=== PATIENT | male | born 1970 | race Hispanic/Latino ===

== ENCOUNTER 2018-10-20 18:02 | Inpatient (IN) | payer SELFPAY ==
[2018-10-20] MEDS ORDERED: ZOFRAN IV ONE ×2 (18:23→18:26)
[2018-10-20] MEDS ORDERED: NACL 0.9% 1000 ML 1,000 ML IV ONE (18:23)
[2018-10-20] MEDS ORDERED: MORPHINE IV ONE (18:26)
[2018-10-20] MEDS ORDERED: MORPHINE ONE (18:28)
--- NOTE | 2018-10-20 18:30 | Emergency Department Report ---
ED Abdominal Pain HPI - General Chief Complaint: GI Bleed Stated Complaint: ABD PAIN Time Seen by Provider: 10/20/18 18:18 Source: patient Mode of arrival: Wheelchair Limitations: No Limitations - History of Present Illness Initial Comments: 48-year-old male with no past medical history presents to ED with epigastric abdominal pain since this morning. Patient states pain has been getting progressively worse. Reported coffee-ground emesis, also reports nonbloody diarrhea. Denies migration or radiation of abdominal pain. Denies aggravating or alleviating factors. Patient states pain feels like a "tearing" sensation. The patient denies tobacco, alcohol, drug use. MD Complaint: abdominal pain -: This morning Location: epigastric Radiation: none Migration to: no migration Severity: severe Severity scale (0 -10): 10 Quality: other ("tearing") Consistency: constant Improves With: nothing Worsens With: nothing Associated Symptoms: nausea, vomiting, diarrhea, other (reports coffee ground emesis). denies: fever, hematochezia, melena - Related Data Allergies Allergy/AdvReac Type Severity Reaction Status Date / Time acetaminophen [From Vicodin] Allergy Swelling Verified 10/20/18 18:41 hydrocodone [From Vicodin] Allergy Swelling Verified 10/20/18 18:41 Penicillins Allergy Swelling Verified 10/20/18 18:41 ED Review of Systems ROS: Stated complaint: ABD PAIN Other details as noted in HPI Comment: All other systems reviewed and negative Constitutional: denies: chills, fever Cardiovascular: denies: chest pain Gastrointestinal: abdominal pain, nausea, vomiting, diarrhea. denies: melena, hematochezia ED Past Medical Hx - Past Medical History Previous Medical History?: No - Surgical History Past Surgical History?: No - Social History Smoking Status: Never Smoker Substance Use Type: None ED Physical Exam - General Limitations: No Limitations General appearance: alert, other (in obvious pain, appears uncomfortable, writhing around on bed) - Head Head exam: Present: atraumatic, normocephalic - Eye Eye exam: Present: normal appearance - ENT ENT exam: Present: mucous membranes moist - Neck Neck exam: Present: normal inspection - Respiratory Respiratory exam: Present: normal lung sounds bilaterally. Absent: respiratory distress - Cardiovascular Cardiovascular Exam: Present: regular rate, normal rhythm - GI/Abdominal GI/Abdominal exam: Present: soft, tenderness (epigastric). Absent: distended - Rectal Rectal exam: Present: heme (-) stool - Extremities Exam Extremities exam: Present: normal inspection - Neurological Exam Neurological exam: Present: alert, oriented X3 - Psychiatric Psychiatric exam: Present: normal affect, normal mood - Skin Skin exam: Present: warm, dry, intact, normal color ED Course Vital Signs 10/20/18 10/20/18 10/20/18 18:07 19:10 19:16 Temperature 98.1 F 98.3 F Pulse Rate 85 81 81 Respiratory 18 21 18 Rate Blood Pressure 190/114 212/100 Blood Pressure 212/100 [Left] O2 Sat by Pulse 97 99 Oximetry 10/20/18 10/20/18 10/20/18 19:30 19:45 19:46 Temperature Pulse Rate 67 88 Respiratory 15 16 Rate Blood Pressure 175/85 188/109 Blood Pressure [Left] O2 Sat by Pulse 97 Oximetry 10/20/18 10/20/18 10/20/18 20:00 20:15 20:30 Temperature Pulse Rate 78 Respiratory Rate Blood Pressure 174/85 175/85 198/142 Blood Pressure [Left] O2 Sat by Pulse 97 98 Oximetry 10/20/18 10/20/18 10/20/18 20:35 20:45 21:01 Temperature Pulse Rate 88 Respiratory Rate Blood Pressure 198/142 189/118 155/94 Blood Pressure [Left] O2 Sat by Pulse 97 97 Oximetry 10/20/18 10/20/18 10/20/18 21:15 21:31 21:45 Temperature Pulse Rate Respiratory Rate Blood Pressure 181/97 192/110 176/131 Blood Pressure [Left] O2 Sat by Pulse 96 97 97 Oximetry 10/20/18 10/20/18 10/20/18 22:00 22:15 22:30 Temperature Pulse Rate 72 Respiratory 11 L Rate Blood Pressure 163/88 163/88 159/80 Blood Pressure [Left] O2 Sat by Pulse 97 98 97 Oximetry 10/20/18 10/20/18 23:39 23:45 Temperature Pulse Rate 83 Respiratory 18 21 Rate Blood Pressure 160/101 Blood Pressure [Left] O2 Sat by Pulse 97 Oximetry ED Medical Decision Making - Lab Data Result diagrams: 10/21/18 00:10 10/20/18 18:27 - EKG Data -: EKG Interpreted by Il EKG shows normal: sinus rhythm, axis, intervals, QRS complexes, ST-T waves Rate: normal - EKG Data Interpretation: no acute changes - Radiology Data Radiology results: report reviewed, image reviewed - Medical Decision Making 48-year-old male with no past medical history presented to ED in acute distress. The patient was complaining of tearing abdominal pain, appear in obvious pain, and hypertensive with systolic BP in the 200s. Patient was immediately taken to CT for a CTA chest, abdomen, pelvis to rule out aortic dissection. CT showed no acute abnormalities, including no aortic dissection. Patient given labetalol, and also hydralazine for BP control. He reported coffee-ground emesis at home, however no emesis here in ED. Hemoglobin normal. Stool guaiac- negative. Patient's pain finally controlled with morphine, 2 doses of Dilaudid, Protonix, and a GI cocktail. Labs appear unremarkable, no elevation in WBCs. Patient afebrile. Will admit patient to hospitalist for further evaluation and GI consult. - Differential Diagnosis aortic dissection, intraabdominal perforation, ACS Critical Care Time: Yes (35) Critical care time in (mins) excluding proc time.: 35 Critical care attestation.: If time is entered above; I have spent that time in minutes in the direct care of this critically ill patient, excluding procedure time. Critical Care Time: 35 minutes ED Disposition Clinical Impression: Gastritis, Intractable abdominal pain, Hypertensive urgency Disposition: [id number] OP ADMIT IP TO THIS HOSP Is pt being admited?: Yes Condition: Stable Time of Disposition: 21:20
[2018-10-20 18:36] LABS: Basophils # (Auto) 0.1 K/mm3 (0.0-0.1); Basophils % (Auto) 0.9 % (0.0-1.8); Eosinophils % (Auto) 0.3 % (0.0-4.3); Hematocrit 41.3 % (35.5-45.6); Hemoglobin 14.1 gm/dl (11.8-15.2); Lymphocytes # (Auto) 1.1 K/mm3 (1.2-5.4); Lymphocytes % (Auto) 12.9 % (13.4-35.0); Mean Corpuscular HGB Conc 34 % (32-34); Mean Corpuscular Volume 83 fl (84-94); Monocytes # (Auto) 0.3 K/mm3 (0.0-0.8); Platelet Count 310 K/mm3 (140-440); Red Blood Count 4.97 M/mm3 (3.65-5.03); Red Cell Distribution Width 13.6 % (13.2-15.2)
[2018-10-20] MEDS ORDERED: DILAUDID IV ONE ×2 (18:53→20:30)
[2018-10-20] MEDS ORDERED: NORMODYNE IV ONE (18:53)
[2018-10-20 18:56] LABS: Alanine Aminotransferase 19 units/L (7-56); Albumin 3.9 g/dL (3.9-5); BUN/Creatinine Ratio 14; Blood Urea Nitrogen 17 mg/dL (9-20); Calcium 9.6 mg/dL (8.4-10.2); Hemolysis Index 10
[2018-10-20 19:01] LABS: Partial Thromboplastin Time 30.6 Sec. (24.2-36.6)
[2018-10-20 19:04] LABS: INR 0.88 (0.87-1.13)
--- NOTE | 2018-10-20 19:42 | Cat Scan Report ---
PROCEDURE: CT ANGIO CHEST TECHNIQUE: Following administration of IV contrast axial helical imaging was performed through the c hest with sagittal and coronal reformatted images and maximum intensity projection images obtained. HISTORY: pain, r/o dissection COMPARISONS: CT angiogram abdomen and pelvis also performed today FINDINGS: There is no evidence of infiltrate, pneumothorax or pleural fluid collection. The trachea and bronchi are patent. The heart appears to be normal size. There are small calcified mediastinal and hilar lymph nodes consistent with chronic granulomatous ana nge. No filling defects are demonstrated within the central pulmonary arteries to suggest the presence of central pulmonary artery emboli. The thoracic aorta is normal caliber and without evidence of dissection. The bony structures are notable for spondylitic change in the lower thoracic spine with multiple leve l degenerative disc change and degenerative facet change. IMPRESSION: 1. No evidence of an acute intrathoracic process. 2. No evidence of aortic dissection. 3. Spondylitic change lower thoracic spine. 4. Calcified mediastinal and hilar lymph nodes consistent with chronic granulomatous change. This document is electronically signed by Daina Dawkins MD., October 20 2018 07:40:58 PM ET
--- NOTE | 2018-10-20 20:05 | Cat Scan Report ---
PROCEDURE: CT ANGIO ABDOMEN PELVIS HISTORY: pain, r/o dissection FINDINGS: Contrast-enhanced CT of the abdomen and pelvis was performed following the intravenous admi nistration of iodinated contrast. The heart is normal in size. The lung bases appear clear. ABDOMEN: The abdominal aorta is normal in size. There is no abdominal aortic dissection. The celiac axis is patent. It is a very short with vessel trifurcation immediately distal to vessel o rigin. The SMA is widely patent. The DONALDO is also patent. There are single bilateral renal arteries wh ich are patent. ABDOMEN: There has been a cholecystectomy. No suspect focal hepatic lesion is seen. The spleen is normal in si ze. The adrenal glands are within normal limits. No focal pancreatic lesion is seen. There is no renal or ureteral calculus. There is no small or large bowel obstruction. Pelvis: There is a normal appendix. The prostate and urinary bladder are within normal limits. The common iliac, external iliac, internal iliac and common femoral arteries are widely patent. IMPRESSION: ABDOMEN: No abdominal aortic dissection Pelvis: The pelvic arterial vasculature appears widely patent This document is electronically signed by Mike Melendez MD., October 20 2018 08:03:45 PM ET
[2018-10-20] MEDS ORDERED: LIDOCAINE VISCOUS 2% PO ONE (20:06)
[2018-10-20] MEDS ORDERED: ALUM-MAG HYDROX-SIMETH 200-200-20MG/5ML PO ONE (20:06)
[2018-10-20] MEDS ORDERED: APRESOLINE IV ONE (20:29)
[2018-10-20] MEDS ORDERED: PROTONIX IV ONE (20:49)
[2018-10-20 20:53] LABS: Bilirubin,Urine NEG (Negative); Blood,Urine NEG (Negative); Color,Urine Yellow (Yellow); Urobilinogen,Urine < 2.0 mg/dL (<2.0); WBC,Urine < 1.0 /HPF (0.0-6.0)
[2018-10-20] MEDS ORDERED: ZOFRAN ONE (22:19)
[2018-10-20] MEDS: DILAUDID IV PRN (23:39)
[2018-10-21 00:21] LABS: Hematocrit 37.3 % (35.5-45.6); Hemoglobin 12.8 gm/dl (11.8-15.2)
[2018-10-21] MEDS: ZOFRAN IV PRN ×3 (01:05→20:55)
[2018-10-21] MEDS: NACL 0.9% 1000 ML 1,000 ML IV SCH ×2 (01:16→09:30)
[2018-10-21] MEDS ORDERED: ATIVAN IV ONE (02:23)
[2018-10-21] MEDS ORDERED: PHENERGAN PR ONE (02:23)
[2018-10-21] MEDS: APRESOLINE IV PRN ×2 (02:47→18:22)
[2018-10-21 05:45] LABS: Hematocrit 37.6 % (35.5-45.6); Hemoglobin 12.7 gm/dl (11.8-15.2)
--- NOTE | 2018-10-21 08:05 | History and Physical Report ---
CHIEF COMPLAINT: Abdominal pain. Other complaints include nausea and vomiting. HISTORY OF PRESENT ILLNESS: The patient is a 48-year-old male, who said he has been having epigastric abdominal pain going on since the morning of 10/20/2018. The pain became progressively worse and there was a report of coffee-ground emesis and also there was associated diarrhea. There was no history of melena or hematochezia. The patient's abdominal pain is in the epigastric area and does not radiate. There are no aggravating or relieving factors. There is also no history of fever or chills, shortness of breath or chest pain. The patient also complained about lump in the soles of both feet, which is painful but denied any history of trauma. PAST MEDICAL HISTORY: Unremarkable. PAST SURGICAL HISTORY: Unremarkable. FAMILY HISTORY: Noncontributory. SOCIAL HISTORY: The patient does not smoke, does not drink alcohol and does not use illicit drugs. MEDICATIONS: The patient's home medications are not known at this time. ALLERGIES: THE PATIENT IS ALLERGIC TO ACETAMINOPHEN, HYDROCODONE AND PENICILLIN. REVIEW OF SYSTEMS: CONSTITUTIONAL: There is no fever, no chills, no diaphoresis. HEENT: There is no headache or sore throat. CARDIOVASCULAR SYSTEM: There is no chest pain or orthopnea. RESPIRATORY SYSTEM: There is no shortness of breath or cough. GASTROINTESTINAL SYSTEM: Epigastric abdominal pain noted. Nausea and vomiting of coffee-ground material noted. The presence of diarrhea also noted. There is no history of constipation. NEUROLOGIC SYSTEM: There is no numbness, no dizziness, no altered mental status. MUSCULOSKELETAL SYSTEM: Presence of tumor in the sole of both feet with pain noted. No joint swelling. DERMATOLOGICAL SYSTEM: There is no skin rash or itching. GENITOURINARY SYSTEM: There is no dysuria, hematuria or flank pain. Rest of system review is normal. PHYSICAL EXAMINATION: GENERAL: At the time of exam, the patient was found to be alert, oriented x3 and in mild to moderate distress due to abdominal pain. VITAL SIGNS: Initially showed temperature of 98.1 degrees Fahrenheit, pulse of 85, respirations 18, blood pressure 190/114, initial blood pressure was 212/100, and later on blood pressure came down to 159/80. HEENT: Showed pupils to be equal, round, reactive to light and accommodation. Extraocular muscles are intact. NECK: Supple with no JVD or carotid bruit. CARDIOVASCULAR SYSTEM: Showed normal first and second heart sounds with no gallops or murmurs. RESPIRATORY SYSTEM: Showed good air entry on both sides of the lungs with no abnormal breath sounds. GASTROINTESTINAL SYSTEM: Showed abdomen to be full, soft, with tenderness in the epigastric area with no rigidity. No rebound tenderness, no guarding. Bowel sounds are normal. NEUROLOGIC SYSTEM: Showed no focal deficits. MUSCULOSKELETAL SYSTEM: Showed tumor in the soles of both feet, tender to touch. There is no joint swelling. DERMATOLOGICAL SYSTEM: Showed no skin rash. GENITOURINARY SYSTEM: Showed no costovertebral angle tenderness. PERTINENT LABORATORY DATA AND IMAGING STUDIES: The patient had CT angiogram of the abdomen and pelvis done that showed no abdominal aortic dissection and ____ pelvic arterial vasculature, ____ widely patent. The patient had also CT angiogram of the chest done that shows no evidence of acute intrathoracic process. There is also no evidence of aortic dissection and spondylolytic change in the lower thoracic spine was found, calcified mediastinal hilar lymph nodes consistent with chronic granulomatous changes were noted. Laboratory results: The patient had CBC done that came back unremarkable except for elevation in the CBC differential showing elevated segmented neutrophil count of 81.9%. Coagulation studies were stable. The patient's chemistry came back unremarkable. The patient's urinalysis showed elevated urine specific gravity of 1.039, otherwise urinalysis was unremarkable. DIAGNOSES: 1. Abdominal pain. 2. Acute gastroenteritis. 3. Hypertensive crisis. 4. Bilateral plantar tumors. PLAN OF CARE: 1. The patient will be admitted to telemetry. 2. The patient will continue GI consult with Dr. Oscar Jaime of [facility] because of a history of Coffee-ground emesis. 3. The patient will have general surgical consult with Dr. Yu because of bilateral plantar tumors. 4. The patient will be on IV hydralazine 10 mg every 4 hours as needed for elevated blood pressure of 150/90 or more. 5. The patient will be on IV Dilaudid 1 mg every 4 hours as needed for pain and IV Zofran 4 mg every 8 hours as needed for nausea and vomiting. 6. The patient will be on IV normal saline running at 125 mL an hour. 7. The patient will be on IV Protonix 40 mg daily and DVT prophylaxis will be through sequential compressive device. JOB# [id number] [facility]/HERBER
[2018-10-21] MEDS: PROTONIX IV SCH (09:30)
[2018-10-21] MEDS: DILAUDID IV PRN ×2 (11:08→18:25)
--- NOTE | 2018-10-21 11:13 | Gastroenterology Consultation ---
<ARVIN LOU - Last Filed: 10/21/18 12:34> History of Present Illness - Reason for Consult Consult date: 10/21/18 acute gastroenteritis, coffee-ground emesis Requesting physician: BAYLEE NAZARIO - History of Present Illness Patient is a 48 y/o male with no significant PMH who presented to ED with c/o epigastric pain, N/V with coffee-ground emesis, and diarrhea to which GI has been consulted. CTA of chest/abdomen/plevis w/o acute process. This morning patient was resting in bed w/o acute distress but ill appearing with multiple episodes of dry heaves/vomiting upon exam with emesis non-bloody. He reports non-radiating epigastric pain with associated N/V (1 episode of vomiting "dark brown" emesis with no further episodes) and non-bloody diarrhea with BMs x 3- 4/day for approximately 1 week. Diarrhea is now improving with no BMs so far today but with continued abd pain and N/V. Symptoms exacerbated with PO intake. No alleviating factors. Denies fever, CP, SOB, hematemesis, melena, dysphagia, hematochezia, or constipation. No recent abx therapy, travel, or known ill contacts. No NSAIDs. No hx of PUD or previous EGD. Rectal exam by ER provider with heme (-) stool. Prior abdominal surgery with cholecystectomy. Past History Past Medical History: No medical history Past Surgical History: cholecystectomy Social history: no significant social history Family history: no significant family history Medications and Allergies Allergies Allergy/AdvReac Type Severity Reaction Status Date / Time acetaminophen [From Vicodin] Allergy Swelling Verified 10/20/18 18:41 hydrocodone [From Vicodin] Allergy Swelling Verified 10/20/18 18:41 Penicillins Allergy Swelling Verified 10/20/18 18:41 Active Meds: Active Medications Hydralazine HCl (Apresoline) 10 mg IV Q4H PRN PRN Reason: Blood Pressure Last Admin: 10/21/18 02:47 Dose: 10 mg Documented by: Hydromorphone HCl (Dilaudid) 1 mg IV Q4H PRN PRN Reason: Pain, Moderate (4-6) Last Admin: 10/20/18 23:39 Dose: 1 mg Documented by: Sodium Chloride (Nacl 0.9% 1000 Ml) 1,000 mls @ 125 mls/hr IV DIRECT [facility] Last Admin: 10/21/18 09:30 Dose: 125 mls/hr Documented by: Ondansetron HCl (Zofran) 4 mg IV Q8H PRN PRN Reason: Nausea And Vomiting Last Admin: 10/21/18 01:05 Dose: 4 mg Documented by: Pantoprazole Sodium (Protonix) 40 mg IV QDAY [facility] Last Admin: 10/21/18 09:30 Dose: 40 mg Documented by: medications reviewed/updated as required Review of Systems - Review of Systems All systems: negative Gastrointestinal: abdominal pain (epigastric), nausea, vomiting, diarrhea, coffee ground emesis Exam - Constitutional Vital Signs: Temp Pulse Resp BP Pulse Ox 98.1 F 95 H 20 156/93 95 10/21/18 06:16 10/21/18 06:16 10/21/18 06:16 10/21/18 06:16 10/21/18 06:16 General appearance: no acute distress, disheveled, other (ill appearing) - EENT Eyes: PERRL, EOM intact ENT: hearing intact - Respiratory Respiratory: bilateral: CTA - Cardiovascular Rhythm: regular - Gastrointestinal General gastrointestinal: Present: soft, tender (epigastric), non-distended, normal bowel sounds - Neurologic Neurological: alert and oriented x3 - Labs CBC & Chem 7: 10/21/18 05:02 10/20/18 18:27 Lab Results: Laboratory Results - last 24 hr 10/20/18 10/20/18 10/20/18 18:27 18:27 18:27 WBC 8.5 RBC 4.97 Hgb 14.1 Hct 41.3 MCV 83 L MCH 28 MCHC 34 RDW 13.6 Plt Count 310 Lymph % (Auto) 12.9 L Nash % (Auto) 4.0 Eos % (Auto) 0.3 Baso % (Auto) 0.9 Lymph # 1.1 L Nash # 0.3 Eos # 0.0 Baso # 0.1 Seg Neutrophils % 81.9 H Seg Neutrophils # 6.9 PT 12.5 INR 0.88 APTT 30.6 Sodium 142 Potassium 4.1 Chloride 102.7 Carbon Dioxide 27 Anion Gap 16 BUN 17 Creatinine 1.2 Estimated GFR > 60 BUN/Creatinine Ratio 14 Glucose 178 H Calcium 9.6 Total Bilirubin 0.80 AST 25 ALT 19 Alkaline Phosphatase 133 H Troponin T < 0.010 Total Protein 7.5 Albumin 3.9 Albumin/Globulin Ratio 1.1 Lipase 37 Urine Color Urine Turbidity Urine pH Ur Specific [place] Urine Protein Urine Glucose (UA) Urine Ketones Urine Blood Urine Nitrite Urine Bilirubin Urine Urobilinogen Ur Leukocyte Esterase Urine WBC (Auto) Urine RBC (Auto) U Epithel Cells (Auto) 10/20/18 10/20/18 10/21/18 20:18 21:35 00:10 WBC RBC Hgb 12.8 Hct 37.3 MCV MCH MCHC RDW Plt Count Lymph % (Auto) Nash % (Auto) Eos % (Auto) Baso % (Auto) Lymph # Nash # Eos # Baso # Seg Neutrophils % Seg Neutrophils # PT INR APTT Sodium Potassium Chloride Carbon Dioxide Anion Gap BUN Creatinine Estimated GFR BUN/Creatinine Ratio Glucose Calcium Total Bilirubin AST ALT Alkaline Phosphatase Troponin T < 0.010 Total Protein Albumin Albumin/Globulin Ratio Lipase Urine Color Yellow Urine Turbidity Clear Urine pH 7.0 Ur Specific [place] 1.039 H Urine Protein 100 mg/dl Urine Glucose (UA) 50 Urine Ketones Tr Urine Blood Neg Urine Nitrite Neg Urine Bilirubin Neg Urine Urobilinogen < 2.0 Ur Leukocyte Esterase Neg Urine WBC (Auto) < 1.0 Urine RBC (Auto) 2.0 U Epithel Cells (Auto) < 1.0 10/21/18 05:02 WBC RBC Hgb 12.7 Hct 37.6 MCV MCH MCHC RDW Plt Count Lymph % (Auto) Nash % (Auto) Eos % (Auto) Baso % (Auto) Lymph # Nash # Eos # Baso # Seg Neutrophils % Seg Neutrophils # PT INR APTT Sodium Potassium Chloride Carbon Dioxide Anion Gap BUN Creatinine Estimated GFR BUN/Creatinine Ratio Glucose Calcium Total Bilirubin AST ALT Alkaline Phosphatase Troponin T Total Protein Albumin Albumin/Globulin Ratio Lipase Urine Color Urine Turbidity Urine pH Ur Specific [place] Urine Protein Urine Glucose (UA) Urine Ketones Urine Blood Urine Nitrite Urine Bilirubin Urine Urobilinogen Ur Leukocyte Esterase Urine WBC (Auto) Urine RBC (Auto) U Epithel Cells (Auto) Assessment and Plan 1.epigastric pain 2.N/V 3.coffee ground emesis 4.diarrhea 5.H/o cholecystectomy -afebrile -WBC, H/H and lipase WNL -LFTs-T.nadya 0.80, AST 25, ALT 19, alk phos 133 -CTA abdomen/pelvis/chest-w/o acute process -Patient report epigastric pain with N/V and diarrhea (now improved with no BM so far today) x 1 week. Had one episode of vomiting "dark brown" emesis but no further signs of bleeding. No melena or hematochezia. Stool heme negative in ER. -etiology unclear- possible acute gastroenteritis vs other -will schedule for EGD today for further evaluation (r/o GI pathology) -Keep NPO -continue PPI and supportive care (IVF, pain medications, antiemetics, etc.) -will follow <NATALIE HANKS - Last Filed: 10/21/18 21:00> Medications and Allergies Active Meds: Active Medications Hydralazine HCl (Apresoline) 10 mg IV Q4H PRN PRN Reason: Blood Pressure Last Admin: 10/21/18 18:22 Dose: 10 mg Documented by: Hydromorphone HCl (Dilaudid) 1 mg IV Q4H PRN PRN Reason: Pain, Moderate (4-6) Last Admin: 10/21/18 18:25 Dose: 1 mg Documented by: Sodium Chloride (Nacl 0.9% 1000 Ml) 1,000 mls @ 125 mls/hr IV DIRECT [facility] Last Admin: 10/21/18 09:30 Dose: 125 mls/hr Documented by: Ondansetron HCl (Zofran) 4 mg IV Q8H PRN PRN Reason: Nausea And Vomiting Last Admin: 10/21/18 11:08 Dose: 4 mg Documented by: Pantoprazole Sodium (Protonix) 40 mg IV QDAY [facility] Last Admin: 10/21/18 09:30 Dose: 40 mg Documented by: Exam - Constitutional Vital Signs: Temp Pulse Resp BP Pulse Ox 98.5 F 95 H 18 198/104 96 10/21/18 18:12 10/21/18 18:22 10/21/18 20:00 10/21/18 18:22 10/21/18 20:00 - Labs CBC & Chem 7: 10/21/18 05:02 10/20/18 18:27 Lab Results: Laboratory Results - last 24 hr 10/20/18 10/20/18 10/21/18 20:18 21:35 00:10 Hgb 12.8 Hct 37.3 Troponin T < 0.010 Urine Color Yellow Urine Turbidity Clear Urine pH 7.0 Ur Specific [place] 1.039 H Urine Protein 100 mg/dl Urine Glucose (UA) 50 Urine Ketones Tr Urine Blood Neg Urine Nitrite Neg Urine Bilirubin Neg Urine Urobilinogen < 2.0 Ur Leukocyte Esterase Neg Urine WBC (Auto) < 1.0 Urine RBC (Auto) 2.0 U Epithel Cells (Auto) < 1.0 10/21/18 05:02 Hgb 12.7 Hct 37.6 Troponin T Urine Color Urine Turbidity Urine pH Ur Specific [place] Urine Protein Urine Glucose (UA) Urine Ketones Urine Blood Urine Nitrite Urine Bilirubin Urine Urobilinogen Ur Leukocyte Esterase Urine WBC (Auto) Urine RBC (Auto) U Epithel Cells (Auto) Assessment and Plan Patient seen and examined. I have reviewed the advanced practitioner's evaluation, assessment, and plan, and agree with them. I note the following additions: Patient with epigastric abd pain and severe N/V currently and suspected coffee ground emesis. Concerning for possible PUD, will continue PPI and supportive care and plan on EGD tomorrow AM (NPO past midnight tonight please)
--- NOTE | 2018-10-21 15:21 | Progress Note ---
Hospitalist Physical - Constitutional Vitals: Temp Pulse Resp BP Pulse Ox 98.3 F 93 H 20 177/83 96 10/21/18 12:45 10/21/18 12:45 10/21/18 12:45 10/21/18 12:45 10/21/18 12:45 Results - Labs CBC & Chem 7: 10/22/18 10:21 10/20/18 18:27 Labs: Laboratory Last Values WBC 8.5 K/mm3 (4.5-11.0) 10/20/18 18: RBC 4.97 M/mm3 (3.65-5.03) 10/20/18 18: Hgb 12.7 gm/dl (11.8-15.2) 10/21/18 05:02 Hct 37.6 % (35.5-45.6) 10/21/18 05:02 MCV 83 fl (84-94) L 10/20/18 18: MCH 28 pg (28-32) 10/20/18 18: MCHC 34 % (32-34) 10/20/18 18: RDW 13.6 % (13.2-15.2) 10/20/18 18: Plt Count 310 K/mm3 (140-440) 10/20/18 18:27 Lymph % (Auto) 12.9 % (13.4-35.0) L 10/20/18 18:27 [place] % (Auto) 4.0 % (0.0-7.3) 10/20/18 18: Eos % (Auto) 0.3 % (0.0-4.3) 10/20/18 18: Baso % (Auto) 0.9 % (0.0-1.8) 10/20/18 18: Lymph # 1.1 K/mm3 (1.2-5.4) L 10/20/18 18: [place] # 0.3 K/mm3 (0.0-0.8) 10/20/18 18: Eos # 0.0 K/mm3 (0.0-0.4) 10/20/18 18: Baso # 0.1 K/mm3 (0.0-0.1) 10/20/18 18: Seg Neutrophils % 81.9 % (40.0-70.0) H 10/20/18 18:27 Seg Neutrophils # 6.9 K/mm3 (1.8-7.7) 10/20/18 18:27 PT 12.5 Sec. (12.2-14.9) 10/20/18 18:27 INR 0.88 (0.87-1.13) 10/20/18 18:27 APTT 30.6 Sec. (24.2-36.6) 10/20/18 18:27 Sodium 142 mmol/L (137-145) 10/20/18 18:27 Potassium 4.1 mmol/L (3.6-5.0) 10/20/18 18:27 Chloride 102.7 mmol/L (98-107) 10/20/18 18:27 Carbon Dioxide 27 mmol/L (22-30) 10/20/18 18:27 Anion Gap 16 mmol/L 10/20/18 18:27 BUN 17 mg/dL (9-20) 10/20/18 18:27 Creatinine 1.2 mg/dL (0.8-1.5) 10/20/18 18:27 Estimated GFR > 60 ml/min 10/20/18 18:27 BUN/Creatinine Ratio 14 % 10/20/18 18: Glucose 178 mg/dL (75-100) H 10/20/18 18:27 Calcium 9.6 mg/dL (8.4-10.2) 10/20/18 18:27 Total Bilirubin 0.80 mg/dL (0.1-1.2) 10/20/18 18:27 AST 25 units/L (5-40) 10/20/18 18:27 ALT 19 units/L (7-56) 10/20/18 18:27 Alkaline Phosphatase 133 units/L (35-129) H 10/20/18 18:27 Troponin T < 0.010 ng/mL (0.00-0.029) 10/20/18 21:35 Total Protein 7.5 g/dL (6.3-8.2) 10/20/18 18:27 Albumin 3.9 g/dL (3.9-5) 10/20/18 18:27 Albumin/Globulin Ratio 1.1 % 10/20/18 18:27 Lipase 37 units/L (13-60) 10/20/18 18:27 Urine Color Yellow (Yellow) 10/20/18 20:18 Urine Turbidity Clear (Clear) 10/20/18 20:18 Urine pH 7.0 (5.0-7.0) 10/20/18 20:18 Ur Specific [place] 1.039 (1.003-1.030) H 10/20/18 20:18 Urine Protein 100 mg/dl mg/dL (Negative) 10/20/18 20:18 Urine Glucose (UA) 50 mg/dL (Negative) 10/20/18 20:18 Urine Ketones Tr mg/dL (Negative) 10/20/18 20:18 Urine Blood Neg (Negative) 10/20/18 20:18 Urine Nitrite Neg (Negative) 10/20/18 20:18 Urine Bilirubin Neg (Negative) 10/20/18 20:18 Urine Urobilinogen < 2.0 mg/dL (<2.0) 10/20/18 20:18 Ur Leukocyte Esterase Neg (Negative) 10/20/18 20:18 Urine WBC (Auto) < 1.0 /HPF (0.0-6.0) 10/20/18 20:18 Urine RBC (Auto) 2.0 /HPF (0.0-6.0) 10/20/18 20:18 U Epithel Cells (Auto) < 1.0 /HPF (0-13.0) 10/20/18 20:18 Active Medications - Current Medications Current Medications: Generic Name Dose Route Start Last Admin Trade Name Freq PRN Reason Stop Dose Admin Hydralazine HCl 10 mg 10/20/18 22:50 10/21/18 02:47 Apresoline IV 10 mg Q4H PRN Administration Blood Pressure Hydromorphone HCl 1 mg 10/20/18 22:45 10/21/18 11:08 Dilaudid IV 1 mg Q4H PRN Administration Pain, Moderate (4-6) Sodium Chloride 1,000 mls @ 125 mls/hr 10/20/18 23:00 10/21/18 09:30 Nacl 0.9% 1000 Ml IV 125 mls/hr DIRECT JOCELYN Administration Ondansetron HCl 4 mg 10/20/18 22:46 10/21/18 11:08 Zofran IV 4 mg Q8H PRN Administration Nausea And Vomiting Pantoprazole Sodium 40 mg 10/21/18 10:00 10/21/18 09:30 Protonix IV 40 mg QDAY JOCELYN Administration Nutrition/Malnutrition Assess - Dietary Evaluation Nutrition/Malnutrition Findings: Nutrition Notes Start: 10/21/18 09:50 Freq: Status: Active Protocol: Document 10/21/18 09:50 LM (Rec: 10/21/18 10:09 LM [id number]) Co-Sign 10/21/18 09:50 LP Nutrition Notes 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 Pt stated his appetite was poor prior to arrival. Pt was eating once a day for a few months. Pt said the last time he ate was 3-4 days ago. Pt denied any weight changes and stated his UBW is 268. Pt admitted to experiencing N/V/D/C daily. Pt has difficulty chewing due to having no teeth. Discussed mechanical soft diet with client. Burn Absent Trauma Absent GI Symptoms Nausea,Vomiting,Diarrhea, Constipation Difficulty In Chewing Current % PO Poor (25-49%) #1 Nutrition Diagnosis Inadequate oral intake Etiology gastroenteritis As Evidenced by Signs and Symptoms pt statement of not eating for 3-4 days and having N/V/D/C, and NPO Is patient on ventilator? No Is Patient Ambulatory and/or Out of Bed Yes REE-([place]-ambulatory/OOB) [ 2731.469 NUTR.MSJOOB] Kcal/Kg value to use for calculation 19 Approximate Energy Requirements Using 2316 kcal/Kg Calculation Used for Recommendations Kcal/kg Additional Notes Protein needs: 80-100 g (0.8-1 g/kg adjBW 100 kg) Fluid needs: 1 ml/kcal Nutrition Intervention Change Diet Order: Reccomend mechanical soft diet Goal #1 Diet advancement when medically feasible Anticipated Discharge Needs: Mechanical soft Follow-Up By: 10/25/18 Additional Comments F/U: diet advancement/intakes
--- NOTE | 2018-10-21 15:21 | Event Note ---
Date: 10/21/18 Patient with abdominal pain. I have seen and examined him. Continue current management. Will follow with Surgery as outpatient for lesion on sole of feet.
[2018-10-21] MEDS ORDERED: TYLENOL PO PRN (20:58)
[2018-10-22] MEDS: DILAUDID IV PRN ×4 (03:37→23:55)
--- NOTE | 2018-10-22 08:22 | Anesthesia Consultation ---
Anesthesia Consult and Med Hx Date of service: 10/22/18 - Airway Anesthetic Teeth Evaluation: Edentulous ROM Head & Neck: Adequate Mental/Hyoid Distance: Adequate Mallampati Class: Class III Intubation Access Assessment: Possibly Difficult - Pre-Operative Health Status ASA Pre-Surgery Classification: ASA2 Proposed Anesthetic Plan: MAC - Pulmonary Hx Pneumonia: No - Cardiovascular System Hx Hypertension: Yes (new diagnosed, no home meds) - Central Nervous System Hx Psychiatric Problems: No - Gastrointestinal Hx Ulcer: Yes (abdominal pain, intractable N/V) - Other Systems Hx Cancer: No Hx Obesity: Yes (BMI 37.5)
[2018-10-22] MEDS: NACL 0.9% 1000 ML 1,000 ML IV SCH (08:23)
[2018-10-22] MEDS ORDERED: DIPRIVAN 10 MG/ML IV ONE (08:24)
[2018-10-22] MEDS ORDERED: BENADRYL ONE (08:24)
--- NOTE | 2018-10-22 08:24 | Anesthesia Day of Surgery ---
Anesthesia Day of Surgery - Day of Surgery Patient Examined: Yes Patient H&P Reviewed: Yes Patient is NPO: Yes
--- NOTE | 2018-10-22 08:46 | Operative Report ---
Operative Report Operative Report: DATE OF SERVICE: 10/22/18 SURGEON: Norman Ann MD EGD with biopsy REPORT PREOPERATIVE DIAGNOSIS and POSTOPERATIVE DIAGNOSIS: N/V/coffee ground emesis ESTIMATED BLOOD LOSS: minimal DESCRIPTION OF PROCEDURE: A high-resolution EGD scope was passed through the oropharynx, esophagus, stomach, and second portion of duodenum. The scope was carefully withdrawn. Retroflexion was performed in the stomach. At the end of the procedure, the scope was cleaned using normal technique. Vital signs monitored continuously throughout. SEDATION: Provided by Anesthesiology Services. COMPLICATIONS: None. FINDINGS: * Significant nodularity and enlargement of the area of the ampulla in the second portion of the duodenum suspicious for an ampullary adenoma, dimesions approximately 1.2cm x 0.6cm (though difficulty to accurately assess do to location on the side wall of the duodenum). Biopsies obtained to r/o adenoma. * Remainder of the duodenum was normal * Moderate gastritis of the gastric antrum and body. Biopsies were taken to rule out H. Pylori infection. A total of 6 biopsies were taken, 2 from the antrum, 1 from the incisura, 2 from the body. * GE junction irregular at 40cm. * No significant esophagitis of the entire esophagus RECOMMENDATIONS: * f/u path results, if the ampullary biopsies do return as adenoma will require referral to specialty center for endoscopic removal * Regarding coffee ground emesis, no major bleeding and no interventions required, just due to small amount of blood from constant retching * Regarding source of N/V, no ulcers no major inflammation so not primary gastric in origin. May be severe viral illness, continue supportive care with IV fluids and anti-emetics and PRN pain meds
[2018-10-22] MEDS ORDERED: PHENERGAN PO PRN (08:48)
[2018-10-22] MEDS: ZOFRAN IV SCH ×3 (10:21→23:55)
[2018-10-22] MEDS: PROTONIX IV SCH (10:21)
[2018-10-22 10:35] LABS: Hematocrit 40.8 % (35.5-45.6); Hemoglobin 13.5 gm/dl (11.8-15.2)
--- NOTE | 2018-10-22 13:12 | Progress Note ---
Assessment and Plan Assessment and plan: Gastritis Cont Protonix Dilaudid prn pain EGD shows area of nodularity in ampulla 2nd portion of duodenum. Abd pain due to gastritis s/p EGD today Obesity. advised diet and exercise Hypertensive urgency clonidine patch lesions plantar feet to be followed as outpatient Poss de home to follow as out patient tomorrow History Interval history: Nausea Abdominal pain had EGD today Hospitalist Physical - Physical exam Narrative exam: Gen: Not in acute distress, lying in bed, obese HEENT: Normocephalic, atraumatic Heart: S1 and S2 reg, no murmurs, rubs or gallop Lungs: Clear to auscultation, no crackles, Abd: soft, tender mid to upper abdomen, non distended, normal BS Ext: No edema, no clubbing, no cyanosis, hard lesions plantar feet Neuro: AAO x 3, no focal signs, moves all ext Psych:Normal mood - Constitutional Vitals: Temp Pulse Resp BP Pulse Ox 98.6 F 91 H 20 160/78 94 10/22/18 11:59 10/22/18 11:59 10/22/18 11:59 10/22/18 11:59 10/22/18 11:59 Results - Labs CBC & Chem 7: 10/22/18 10:21 10/20/18 18:27 Labs: Laboratory Last Values WBC 8.5 K/mm3 (4.5-11.0) 10/20/18 18:27 RBC 4.97 M/mm3 (3.65-5.03) 10/20/18 18:27 Hgb 13.5 gm/dl (11.8-15.2) 10/22/18 10:21 Hct 40.8 % (35.5-45.6) 10/22/18 10:21 MCV 83 fl (84-94) L 10/20/18 18:27 MCH 28 pg (28-32) 10/20/18 18:27 MCHC 34 % (32-34) 10/20/18 18:27 RDW 13.6 % (13.2-15.2) 10/20/18 18:27 Plt Count 310 K/mm3 (140-440) 10/20/18 18:27 Lymph % (Auto) 12.9 % (13.4-35.0) L 10/20/18 18:27 [place] % (Auto) 4.0 % (0.0-7.3) 10/20/18 18:27 Eos % (Auto) 0.3 % (0.0-4.3) 10/20/18 18: Baso % (Auto) 0.9 % (0.0-1.8) 10/20/18 18: Lymph # 1.1 K/mm3 (1.2-5.4) L 10/20/18 18: [place] # 0.3 K/mm3 (0.0-0.8) 10/20/18 18: Eos # 0.0 K/mm3 (0.0-0.4) 10/20/18 18: Baso # 0.1 K/mm3 (0.0-0.1) 10/20/18 18: Seg Neutrophils % 81.9 % (40.0-70.0) H 10/20/18 18: Seg Neutrophils # 6.9 K/mm3 (1.8-7.7) 10/20/18 18: PT 12.5 Sec. (12.2-14.9) 10/20/18 18: INR 0.88 (0.87-1.13) 10/20/18 18: APTT 30.6 Sec. (24.2-36.6) 10/20/18 18: Sodium 142 mmol/L (137-145) 10/20/18 18: Potassium 4.1 mmol/L (3.6-5.0) 10/20/18 18: Chloride 102.7 mmol/L (98-107) 10/20/18 18: Carbon Dioxide 27 mmol/L (22-30) 10/20/18 18: Anion Gap 16 mmol/L 10/20/18 18: BUN 17 mg/dL (9-20) 10/20/18 18: Creatinine 1.2 mg/dL (0.8-1.5) 10/20/18 18: Estimated GFR > 60 ml/min 10/20/18 18: BUN/Creatinine Ratio 14 % 10/20/18 18: Glucose 178 mg/dL (75-100) H 10/20/18 18: Calcium 9.6 mg/dL (8.4-10.2) 10/20/18 18:27 Total Bilirubin 0.80 mg/dL (0.1-1.2) 10/20/18 18:27 AST 25 units/L (5-40) 10/20/18 18:27 ALT 19 units/L (7-56) 10/20/18 18:27 Alkaline Phosphatase 133 units/L (35-129) H 10/20/18 18:27 Troponin T < 0.010 ng/mL (0.00-0.029) 10/20/18 21:35 Total Protein 7.5 g/dL (6.3-8.2) 10/20/18 18:27 Albumin 3.9 g/dL (3.9-5) 10/20/18 18: Albumin/Globulin Ratio 1.1 % 10/20/18 18:27 Lipase 37 units/L (13-60) 10/20/18 18:27 Urine Color Yellow (Yellow) 10/20/18 20:18 Urine Turbidity Clear (Clear) 10/20/18 20:18 Urine pH 7.0 (5.0-7.0) 10/20/18 20:18 Ur Specific [place] 1.039 (1.003-1.030) H 10/20/18 20:18 Urine Protein 100 mg/dl mg/dL (Negative) 10/20/18 20:18 Urine Glucose (UA) 50 mg/dL (Negative) 10/20/18 20:18 Urine Ketones Tr mg/dL (Negative) 10/20/18 20:18 Urine Blood Neg (Negative) 10/20/18 20:18 Urine Nitrite Neg (Negative) 10/20/18 20:18 Urine Bilirubin Neg (Negative) 10/20/18 20:18 Urine Urobilinogen < 2.0 mg/dL (<2.0) 10/20/18 20:18 Ur Leukocyte Esterase Neg (Negative) 10/20/18 20:18 Urine WBC (Auto) < 1.0 /HPF (0.0-6.0) 10/20/18 20:18 Urine RBC (Auto) 2.0 /HPF (0.0-6.0) 10/20/18 20:18 U Epithel Cells (Auto) < 1.0 /HPF (0-13.0) 10/20/18 20:18 Active Medications - Current Medications Current Medications: Generic Name Dose Route Start Last Admin Trade Name Freq PRN Reason Stop Dose Admin Acetaminophen 650 mg 10/21/18 20:58 Tylenol PO Q4H PRN Headache Hydralazine HCl 10 mg 10/20/18 22:50 10/21/18 18:22 Apresoline IV 10 mg Q4H PRN Administration Blood Pressure Hydromorphone HCl 1 mg 10/20/18 22:45 10/22/18 10:21 Dilaudid IV 1 mg Q4H PRN Administration Pain, Moderate (4-6) Sodium Chloride 1,000 mls @ 50 mls/hr 10/22/18 09:00 10/22/18 08:23 Nacl 0.9% 1000 Ml IV 50 mls/hr DIRECT JOCELYN Administration Ondansetron HCl 4 mg 10/20/18 22:46 10/21/18 20:55 Zofran IV 4 mg Q8H PRN Administration Nausea And Vomiting Ondansetron HCl 4 mg 10/22/18 09:00 10/22/18 10:21 Zofran IV 4 mg Q8H JOCELYN Administration Pantoprazole Sodium 40 mg 10/21/18 10:00 10/22/18 10:21 Protonix IV 40 mg QDAY JOCELYN Administration Promethazine HCl 12.5 mg 10/22/18 08:48 Phenergan PO Q6H PRN Nausea And Vomiting Nutrition/Malnutrition Assess - Dietary Evaluation Nutrition/Malnutrition Findings: Nutrition Notes Start: 10/21/18 09:50 Freq: Status: Active Protocol: Document 10/21/18 09:50 LM (Rec: 10/21/18 10:09 LM [id number]) Co-Sign 10/21/18 09:50 LP Nutrition Notes 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 Pt stated his appetite was poor prior to arrival. Pt was eating once a day for a few months. Pt said the last time he ate was 3-4 days ago. Pt denied any weight changes and stated his UBW is 268. Pt admitted to experiencing N/V/D/C daily. Pt has difficulty chewing due to having no teeth. Discussed mechanical soft diet with client. Burn Absent Trauma Absent GI Symptoms Nausea,Vomiting,Diarrhea, Constipation Difficulty In Chewing Current % PO Poor (25-49%) #1 Nutrition Diagnosis Inadequate oral intake Etiology gastroenteritis As Evidenced by Signs and Symptoms pt statement of not eating for 3-4 days and having N/V/D/C, and NPO Is patient on ventilator? No Is Patient Ambulatory and/or Out of Bed Yes REE-([place]-ambulatory/OOB) [ 2731.469 NUTR.MSJOOB] Kcal/Kg value to use for calculation 19 Approximate Energy Requirements Using 2316 kcal/Kg Calculation Used for Recommendations Kcal/kg Additional Notes Protein needs: 80-100 g (0.8-1 g/kg adjBW 100 kg) Fluid needs: 1 ml/kcal Nutrition Intervention Change Diet Order: Reccomend mechanical soft diet Goal #1 Diet advancement when medically feasible Anticipated Discharge Needs: Mechanical soft Follow-Up By: 10/25/18 Additional Comments F/U: diet advancement/intakes
[2018-10-22] MEDS: APRESOLINE IV PRN (17:33)
[2018-10-22] MEDS ORDERED: CATAPRES-TTS PATCH TD SCH (18:00)
[2018-10-23] MEDS: ZOFRAN IV SCH ×3 (03:15→18:12)
[2018-10-23] MEDS: APRESOLINE IV PRN (06:21)
[2018-10-23] MEDS: NACL 0.9% 1000 ML 1,000 ML IV SCH (06:55)
[2018-10-23] MEDS: DILAUDID IV PRN ×3 (07:02→23:00)
--- NOTE | 2018-10-23 09:26 | Discharge Summary ---
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 He was seen and evaluated in emergency department. CT Angio of Abdomen and Pelvis was done was unremarkable. Patient was started on Protonix, narcotics, admitted and GI physician consulted. EGD was done following day revealed gastritis and significant nodularity and enlargement of the area of ampulla of the 2nd part of duodenum. Biopsies were taken. Patient had hypertensive urgency managed with Norvasc and Clonidine. Abdominal pain improved and patient was discharged to follow with GI for biopsy pathology reports. Total time spent on discharge, 31 mins Disposition: - TO HOME OR SELFCARE - Discharge Diagnoses (1) Gastritis Status: Acute (2) Hypertensive urgency Status: Acute (3) Intractable abdominal pain Status: Acute Core Measure Documentation - Palliative Care Palliative Care/ Comfort Measures: Not Applicable - Core Measures Any of the following diagnoses?: none Exam - Constitutional Vitals: Temp Pulse Resp BP Pulse Ox 99.0 F 92 H 20 146/112 96 10/23/18 07:00 10/23/18 07:00 10/23/18 07:00 10/23/18 07:00 10/23/18 07:00 Plan Activity: advance as tolerated Diet: low fat, low cholesterol, low salt, other (soft diet, advance as tolerated) Additional Instructions: 1.Folllow up with PCP or [place] [place]ala in 1 week. 2.Follow up with Dr. Ann GI in 1-2 weeks Follow up with: TORO HILL MD [Referring] - 3-5 Days Forms: Accompanied Note Prescriptions: cloNIDine [Catapres] 0.2 mg PO Q12HR #60 tablet amLODIPine [Norvasc] 5 mg PO QDAY #30 tablet Promethazine [Phenergan TAB] 25 mg PO Q6HR PRN #20 tab PRN Reason: Nausea or vomiting Pantoprazole [Protonix TAB] 40 mg PO DAILY #30 tablet
[2018-10-23] MEDS: PROTONIX PO SCH ×2 (09:28→11:10)
--- NOTE | 2018-10-23 10:18 | Gastroenterology Progress Note ---
Assessment and Plan 1. Coffee ground emesis 2. Nausea/vomiting 3. 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 Gastritis -s/p EGD with gastritis. Path pending to r/o H. pylori. also with abnormal ampulla appearance s/p biopsies. okay to d/c home from gi stand point with sup portive care regarding n/v. no signs of further bleeding and H/H stable. pt will need outpatient f/u in GI clinic in 2 weeks to review path regarding gastric biopsies and more importantly ampulla biopsies. Subjective Date of service: 10/23/18 Principal diagnosis: n/v, coffee ground emesis Interval history: pt seen and examined; continues to have nausea. no significant abd pain. no further signs of gi bleeding. Objective - Constitutional Vitals: Temp Pulse Resp BP Pulse Ox 99.0 F 92 H 20 146/112 96 10/23/18 07:00 10/23/18 07:00 10/23/18 07:00 10/23/18 07:00 10/23/18 07:00 General appearance: no acute distress - Respiratory Respiratory effort: normal Respiratory: bilateral: CTA - Cardiovascular Rhythm: regular Heart Sounds: Present: S1 & S2 - Gastrointestinal General gastrointestinal: Present: soft, non-tender, non-distended - Labs CBC & Chem 7: 10/22/18 10:21 10/20/18 18:27 Labs: Laboratory Results - last 24 hr 10/22/18 10:21 Hgb 13.5 Hct 40.8
[2018-10-23] MEDS: CATAPRES PO SCH (13:00)
[2018-10-23] MEDS: NORVASC PO SCH (13:01)
--- NOTE | 2018-10-23 14:37 | Progress Note ---
Assessment and Plan Assessment and plan: Gastritis Cont Protonix Dilaudid prn pain EGD shows area of nodularity in ampulla 2nd portion of duodenum. To follow up biopsy Abd pain due to gastritis s/p EGD 10/22 Obesity. advised diet and exercise Hypertensive urgency Start Clonidine po, Amlodipine po lesions plantar feet. To follow with Dr. Yu as outpatient Hopefully dc home tomorrow History Interval history: Still Nausea Vomited today Still having Abdominal pain Hospitalist Physical - Physical exam Narrative exam: Gen: Not in acute distress, lying in bed, obese HEENT: Normocephalic, atraumatic Heart: S1 and S2 reg, no murmurs, rubs or gallop Lungs: Clear to auscultation, no crackles, Abd: soft, tender mid to upper abdomen, non distended, normal BS Ext: No edema, no clubbing, no cyanosis, hard lesions plantar feet Neuro: AAO x 3, no focal signs, moves all ext Psych:Normal mood - Constitutional Vitals: Temp Pulse Resp BP Pulse Ox 97.8 F 80 16 190/91 96 10/23/18 13:02 10/23/18 13:00 10/23/18 13:02 10/23/18 13:02 10/23/18 12:59 Results - Labs CBC & Chem 7: 10/22/18 10:21 10/20/18 18:27 Labs: Laboratory Last Values WBC 8.5 K/mm3 (4.5-11.0) 10/20/18 18:27 RBC 4.97 M/mm3 (3.65-5.03) 10/20/18 18:27 Hgb 13.5 gm/dl (11.8-15.2) 10/22/18 10:21 Hct 40.8 % (35.5-45.6) 10/22/18 10:21 MCV 83 fl (84-94) L 10/20/18 18:27 MCH 28 pg (28-32) 10/20/18 18:27 MCHC 34 % (32-34) 10/20/18 18:27 RDW 13.6 % (13.2-15.2) 10/20/18 18:27 Plt Count 310 K/mm3 (140-440) 10/20/18 18:27 Lymph % (Auto) 12.9 % (13.4-35.0) L 10/20/18 18:27 Hardy % (Auto) 4.0 % (0.0-7.3) 10/20/18 18:27 Eos % (Auto) 0.3 % (0.0-4.3) 10/20/18 18: Baso % (Auto) 0.9 % (0.0-1.8) 10/20/18 18: Lymph # 1.1 K/mm3 (1.2-5.4) L 10/20/18 18: Hardy # 0.3 K/mm3 (0.0-0.8) 10/20/18 18: Eos # 0.0 K/mm3 (0.0-0.4) 10/20/18 18: Baso # 0.1 K/mm3 (0.0-0.1) 10/20/18 18: Seg Neutrophils % 81.9 % (40.0-70.0) H 10/20/18 18: Seg Neutrophils # 6.9 K/mm3 (1.8-7.7) 10/20/18 18: PT 12.5 Sec. (12.2-14.9) 10/20/18 18: INR 0.88 (0.87-1.13) 10/20/18 18: APTT 30.6 Sec. (24.2-36.6) 10/20/18 18: Sodium 142 mmol/L (137-145) 10/20/18 18: Potassium 4.1 mmol/L (3.6-5.0) 10/20/18 18: Chloride 102.7 mmol/L (98-107) 10/20/18 18: Carbon Dioxide 27 mmol/L (22-30) 10/20/18 18: Anion Gap 16 mmol/L 10/20/18 18: BUN 17 mg/dL (9-20) 10/20/18 18: Creatinine 1.2 mg/dL (0.8-1.5) 10/20/18 18: Estimated GFR > 60 ml/min 10/20/18 18: BUN/Creatinine Ratio 14 % 10/20/18 18: Glucose 178 mg/dL (75-100) H 10/20/18 18:27 Calcium 9.6 mg/dL (8.4-10.2) 10/20/18 18:27 Total Bilirubin 0.80 mg/dL (0.1-1.2) 10/20/18 18:27 AST 25 units/L (5-40) 10/20/18 18:27 ALT 19 units/L (7-56) 10/20/18 18:27 Alkaline Phosphatase 133 units/L (35-129) H 10/20/18 18:27 Troponin T < 0.010 ng/mL (0.00-0.029) 10/20/18 21:35 Total Protein 7.5 g/dL (6.3-8.2) 10/20/18 18:27 Albumin 3.9 g/dL (3.9-5) 10/20/18 18: Albumin/Globulin Ratio 1.1 % 10/20/18 18:27 Lipase 37 units/L (13-60) 10/20/18 18:27 Urine Color Yellow (Yellow) 10/20/18 20:18 Urine Turbidity Clear (Clear) 10/20/18 20:18 Urine pH 7.0 (5.0-7.0) 10/20/18 20:18 Ur Specific [place] 1.039 (1.003-1.030) H 10/20/18 20:18 Urine Protein 100 mg/dl mg/dL (Negative) 10/20/18 20:18 Urine Glucose (UA) 50 mg/dL (Negative) 10/20/18 20:18 Urine Ketones Tr mg/dL (Negative) 10/20/18 20:18 Urine Blood Neg (Negative) 10/20/18 20:18 Urine Nitrite Neg (Negative) 10/20/18 20:18 Urine Bilirubin Neg (Negative) 10/20/18 20:18 Urine Urobilinogen < 2.0 mg/dL (<2.0) 10/20/18 20:18 Ur Leukocyte Esterase Neg (Negative) 10/20/18 20:18 Urine WBC (Auto) < 1.0 /HPF (0.0-6.0) 10/20/18 20:18 Urine RBC (Auto) 2.0 /HPF (0.0-6.0) 10/20/18 20:18 U Epithel Cells (Auto) < 1.0 /HPF (0-13.0) 10/20/18 20:18 Active Medications - Current Medications Current Medications: Generic Name Dose Route Start Last Admin Trade Name Freq PRN Reason Stop Dose Admin Acetaminophen 650 mg 10/21/18 20:58 10/22/18 16:39 Tylenol PO 650 mg Q4H PRN Administration Headache Amlodipine Besylate 5 mg 10/23/18 13:00 10/23/18 13:01 Norvasc PO 5 mg QDAY JOCELYN Administration Clonidine HCl 0.2 mg 10/23/18 13:00 10/23/18 13:00 Catapres PO 0.2 mg Q12HR JOCELYN Administration Hydralazine HCl 10 mg 10/20/18 22:50 10/23/18 06:21 Apresoline IV 10 mg Q4H PRN Administration Blood Pressure Hydromorphone HCl 0.5 mg 10/23/18 13:13 Dilaudid IV Q4H PRN Pain, Moderate (4-6) Sodium Chloride 1,000 mls @ 50 mls/hr 10/22/18 09:00 10/23/18 06:55 Nacl 0.9% 1000 Ml IV 50 mls/hr DIRECT JOCELYN Administration Ondansetron HCl 4 mg 10/20/18 22:46 10/21/18 20:55 Zofran IV 4 mg Q8H PRN Administration Nausea And Vomiting Ondansetron HCl 4 mg 10/22/18 09:00 10/23/18 11:10 Zofran IV 4 mg Q8H JOCELYN Administration Pantoprazole Sodium 40 mg 10/23/18 10:00 10/23/18 11:10 Protonix PO 40 mg DAILY JOCELYN Administration Promethazine HCl 12.5 mg 10/22/18 08:48 Phenergan PO Q6H PRN Nausea And Vomiting Nutrition/Malnutrition Assess - Dietary Evaluation Nutrition/Malnutrition Findings: Nutrition Notes Start: 10/21/18 09:50 Freq: Status: Active Protocol: Document 10/21/18 09:50 LM (Rec: 10/21/18 10:09 LM [id number]) Co-Sign 10/21/18 09:50 LP Nutrition Notes 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 Pt stated his appetite was poor prior to arrival. Pt was eating once a day for a few months. Pt said the last time he ate was 3-4 days ago. Pt denied any weight changes and stated his UBW is 268. Pt admitted to experiencing N/V/D/C daily. Pt has difficulty chewing due to having no teeth. Discussed mechanical soft diet with client. Burn Absent Trauma Absent GI Symptoms Nausea,Vomiting,Diarrhea, Constipation Difficulty In Chewing Current % PO Poor (25-49%) #1 Nutrition Diagnosis Inadequate oral intake Etiology gastroenteritis As Evidenced by Signs and Symptoms pt statement of not eating for 3-4 days and having N/V/D/C, and NPO Is patient on ventilator? No Is Patient Ambulatory and/or Out of Bed Yes REE-([facility]-ambulatory/OOB) [ 2731.469 [id number]] Kcal/Kg value to use for calculation 19 Approximate Energy Requirements Using 2316 kcal/Kg Calculation Used for Recommendations Kcal/kg Additional Notes Protein needs: 80-100 g (0.8-1 g/kg adjBW 100 kg) Fluid needs: 1 ml/kcal Nutrition Intervention Change Diet Order: Reccomend mechanical soft diet Goal #1 Diet advancement when medically feasible Anticipated Discharge Needs: Mechanical soft Follow-Up By: 10/25/18 Additional Comments F/U: diet advancement/intakes
[2018-10-24] MEDS: CATAPRES PO SCH ×2 (00:45→09:16)
[2018-10-24] MEDS: NACL 0.9% 1000 ML 1,000 ML IV SCH (00:45)
[2018-10-24] MEDS: ZOFRAN IV SCH ×3 (00:45→16:43)
[2018-10-24] MEDS: ZOFRAN IV PRN (05:29)
[2018-10-24] MEDS: DILAUDID IV PRN (05:35)
[2018-10-24] MEDS: NORVASC PO SCH (09:16)
[2018-10-24] MEDS: PROTONIX PO SCH (09:16)
--- NOTE | 2018-10-24 09:25 | Event Note ---
Date: 10/24/18 Patient stable to dc
--- NOTE | 2018-10-24 13:13 | Gastroenterology Progress Note ---
Assessment and Plan 1. Abdominal pain - improved 2. Nausea/vomiting/coffee ground emesis - tolerated lunch today 3. Gastritis - f/u path from endoscopy 4. Abnormal ampulla during EGD - f/u path; needs f/u in GI clinic in 2 weeks. will s/o, please call as needed. Subjective Date of service: 10/24/18 Principal diagnosis: n/v, coffee ground emesis Interval history: pt seen and examined. tolerated lunch today. abd pain improved; no signs of bleeding Objective - Constitutional Vitals: Temp Pulse Resp BP Pulse Ox 98.4 F 60 18 127/73 97 10/24/18 11:07 10/24/18 11:07 10/24/18 11:07 10/24/18 11:07 10/24/18 11:07 General appearance: no acute distress - Respiratory Respiratory effort: normal Respiratory: bilateral: CTA - Cardiovascular Rhythm: regular Heart Sounds: Present: S1 & S2 - Gastrointestinal General gastrointestinal: Present: soft, non-tender, non-distended - Labs CBC & Chem 7: 10/22/18 10:21 10/20/18 18:27
[2018-10-24 16:39] VITALS: BP 149/84
== END 2018-10-24 17:10 | disposition home or self-care (01) | DRG 379 ==
LOC: ED 18:02 → 3A 22:39
PROVIDERS: ADMIT Internal Medicine; ATTEND Internal Medicine
PROC: 0DB98ZX Excision of Duodenum, Via Natural or Artificial Opening Endoscopic, Diagnostic (ICD-10-PCS; principal; 2018-10-22)
PROC: 0DB68ZX Excision of Stomach, Via Natural or Artificial Opening Endoscopic, Diagnostic (ICD-10-PCS; 2018-10-22)
DX: K29.71 Gastritis, unspecified, with bleeding (principal); I16.0 Hypertensive urgency; Z88.0 Allergy status to penicillin; Z88.8 Allergy status to other drugs, medicaments and biological substances; Z90.49 Acquired absence of other specified parts of digestive tract; E66.9 Obesity, unspecified; Z68.37 Body mass index [BMI] 37.0-37.9, adult; Z71.3 Dietary counseling and surveillance
CPT/HCPCS: 36415; 71275; 74174; 80053; 81001; 83690; 84484; 85014; 85018; 85025; 85610; 85730; 88305; 88342; 93005; 93010; 96361; 96374; 96375; 96376; G0378; C9113; J0360; J1170; J1200; J2060; J2270; J2405; J2704; J7030; Q9967